=== PATIENT | male | born 1980 | race Caucasian/White ===

== ENCOUNTER 2018-06-23 20:44 | Emergency (ER) | payer OTHER ==
[2018-06-23] MEDS: TETRACAINE 0.5% 4 ML OPH RIGHT EYE (21:26)
== END 2018-06-23 21:39 | disposition home or self-care (01) ==
LOC: E/R 20:44
DX: H11.31 Conjunctival hemorrhage, right eye (principal); S05.01XA Injury of conjunctiva and corneal abrasion without foreign body, right eye, initial encounter; H20.9 Unspecified iridocyclitis; W22.8XXA Striking against or struck by other objects, initial encounter; Y92.89 Other specified places as the place of occurrence of the external cause
CPT/HCPCS: 99282

== ENCOUNTER 2018-08-01 02:46 | Emergency (ER) | payer SELFPAY, OTHER | END 2018-08-01 03:59 | disposition home or self-care (01) | LOC: FTE 03:59 | DX: H10.022 Other mucopurulent conjunctivitis, left eye (principal) | CPT/HCPCS: 99283 ==